=== PATIENT | female | born 1950 | race Caucasian/White ===

== ENCOUNTER 2022-03-27 14:33 | Emergency (ER) | payer BC, MEDICARE, OTHER | END 2022-03-27 15:31 | disposition home or self-care (01) | LOC: NAV ERS 14:33 | DX: G51.0 Bell's palsy (principal) | CPT/HCPCS: 99283 ==

== ENCOUNTER 2024-03-05 09:46 | Emergency (ER) | payer MEDICARE | END 2024-03-05 10:20 | disposition home or self-care (01) | LOC: NAV ERS 09:46 | DX: H00.014 Hordeolum externum left upper eyelid (principal) | CPT/HCPCS: 99283 ==